=== PATIENT | male | born 1970 | race Caucasian/White ===

== ENCOUNTER 2017-08-31 10:32 | Emergency (ER) | payer MEDICAID, SELFPAY ==
[2017-08-31 10:43] VITALS: BP 105/67; PULSE 86; RESP 20; TEMP 36.6; O2SAT 99; BMI 33.0
--- NOTE | 2017-08-31 10:51 | HMH.EDUTC ---
[facility] [place] Impression: Upper respiratory infection Qualifiers: URI type: unspecified URI Qualified Code(s): J06.9 - Acute upper respiratory infection, unspecified Disposition: Home, Self-Care Condition on Discharge: Good Instructions: Cough, DI for Nasal Congestion, Sore Throat, DI for Fever (Symptom) -- Adult Additional Instructions: * Monitor Temp. Tylenol and/or Ibuprofen as needed. ER if fever is no less than 101 despite alternating Tylenol and Ibuprofen * Encourage fluids, water, Gatorade, powerade, pedialyte if infant/toddler/or child * Warm salt water gargles for throat irritation *Warm fluids *Sore throat lozenges *Sleep elevated *humidifier or vaporizer Lots of rest Increase fluids, water, Gatorade, powerade Follow up IMMEDIATELY for new or worsening of symptoms OR no noticeable improvement over the next 48-72 hours. 911 immediately for any life threatening symptoms such as chest pain or difficulty breathing Prescriptions: Azithromycin [Z-Joni 250mg Tab] 250 mg PO UD DOSE PK #6 tab Dextromethorphan Polistirex [Delsym] 10 ml PO Q12H #200 gene.er.12h Referrals: Cm Chance MD [Primary Care Provider] - Time of Disposition: 11:05 Medical Decision Making - Medical Records Medical records reviewed: Yes: I reviewed the patient's medical records. Vital Signs: 08/31/17 10:43 Temperature 97.9 F Temperature Source Temporal Artery Scan Pulse Rate [Left Brachial] 86 Respiratory Rate 20 Blood Pressure [Left Arm] 105/67 Blood Pressure Mean [Left Arm] 79 Blood Pressure Source [Left Arm] Automatic Cuff Blood Pressure Position [Left Arm] Sitting 02 Sat by Pulse Oximetry 99 Oxygen Delivery Method Room Air - Tristen Inquiry Pt receiving controlled substance: No Tristen was queried for this patient: No - Reevaluation(s) Time: 11:04 (Patient educated that steroid injection may cause blood sugar to be higher for the next couple of days then it should come back down patient verbalized understanding and advised that he has taken it before) [facility] [place] - General Stated complaint: hot and cold, weak headache Mode of Arrival: Ambulatory Source of Information: Patient Limitations: No Limitations Description of Symptoms (Recalled from Triage Doc. by RN): C/O BODYACHES, CHILLS, FEVER, CONGESTION HEENT Symptoms (Recalled from RN notes): Yes (CONGESTION) Resp Symptoms (Recalled from RN notes): Yes (CONGESTION) Skin Symptoms (Recalled from RN notes): No MS Symptoms (Recalled from RN notes): Yes (BODYACHES) Functional Status (Recalled from RN notes): N/A - History of Present Illness Provider Complaint: Patient state that he thinks he has the flu State that he is having body aches, chills, fever cough and sinus pain and pressure State that it has continued to get worse as the days went on State that he knew flu was going around so wanted to come in and get checked - Related Data Home Medications Medication Instructions Recorded Confirmed Gabapentin [Gabapentin 800mg Tab] 800 mg PO DAILY 08/31/17 08/31/17 Levothyroxine Sodium 100 mg PO DAILY 08/31/17 08/31/17 [Levothyroxine 100mcg (0.1MG) Tab] Lisinopril [Lisinopril 10mg Tab] 10 mg PO DAILY 08/31/17 08/31/17 Lovastatin 10 mg PO DAILY 08/31/17 08/31/17 Previous Rx's Medication Instructions Recorded Azithromycin [Z-Join 250mg Tab] 250 mg PO UD DOSE PK #6 tab 08/31/17 Dextromethorphan Polistirex 10 ml PO Q12H #200 gene.er.12h 08/31/17 [Delsym] Allergies Allergy/AdvReac Type Severity Reaction Status Date / Time codeine [CODEINE] Allergy Unknown NA-NAUSEA Verified 08/31/17 10:48 - Worker's Comp Is this a Worker's Comp case?: No H History I have reviewed the patient's past medical history: Yes Medical History: Reports:: Diabetes Mellitus Type 1 Denies:: Cancer, Diabetes Mellitus Type 2, MRSA Amputation: No Fractures: No - *Social History Smoking Status: Current every day smoker Alcohol Intake: never - Psychiatric Hi
--- NOTE | 2017-08-31 10:54 | ED_ITS ---
[facility] [place] Impression: Upper respiratory infection Qualifiers: URI type: unspecified URI Qualified Code(s): J06.9 - Acute upper respiratory infection, unspecified Disposition: Home, Self-Care Condition on Discharge: Good Instructions: Cough, DI for Nasal Congestion, Sore Throat, DI for Fever ( Symptom) -- Adult Additional Instructions: * Monitor Temp. Tylenol and/or Ibuprofen as needed. ER if fever is no less than 101 despite alternating Tylenol and Ibuprofen * Encourage fluids, water, Gatorade, powerade, pedialyte if infant/toddler/or child * Warm salt water gargles for throat irritation *Warm fluids *Sore throat lozenges *Sleep elevated *humidifier or vaporizer Lots of rest Increase fluids, water, Gatorade, powerade Follow up IMMEDIATELY for new or worsening of symptoms OR no noticeable improvement over the next 48-72 hours. 911 immediately for any life threatening symptoms such as chest pain or difficulty breathing Prescriptions: Azithromycin [Z-Joni 250mg Tab] 250 mg PO UD DOSE PK #6 tab Dextromethorphan Polistirex [Delsym] 10 ml PO Q12H #200 gene.er.12h Referrals: Cm Chance MD [Primary Care Provider] - Time of Disposition: 11:05 Medical Decision Making - Medical Records Medical records reviewed: Yes: I reviewed the patient's medical records. Vital Signs: 08/31/17 10:43 Temperature 97.9 F Temperature Source Temporal Artery Scan Pulse Rate [Left Brachial] 86 Respiratory Rate 20 Blood Pressure [Left Arm] 105/67 Blood Pressure Mean [Left Arm] 79 Blood Pressure Source [Left Arm] Automatic Cuff Blood Pressure Position [Left Arm] Sitting 02 Sat by Pulse Oximetry 99 Oxygen Delivery Method Room Air - Tristen Inquiry Pt receiving controlled substance: No Tristen was queried for this patient: No - Reevaluation(s) Time: 11:04 (Patient educated that steroid injection may cause blood sugar to be higher for the next couple of days then it should come back down patient verbalized understanding and advised that he has taken it before) [facility] [place] - General Stated complaint: hot and cold, weak headache Mode of Arrival: Ambulatory Source of Information: Patient Limitations: No Limitations Description of Symptoms (Recalled from Triage Doc. by RN): C/O BODYACHES, CHILLS , FEVER, CONGESTION HEENT Symptoms (Recalled from RN notes): Yes (CONGESTION) Resp Symptoms (Recalled from RN notes): Yes (CONGESTION) Skin Symptoms (Recalled from RN notes): No MS Symptoms (Recalled from RN notes): Yes (BODYACHES) Functional Status (Recalled from RN notes): N/A - History of Present Illness Provider Complaint: Patient state that he thinks he has the flu State that he is having body aches, chills, fever cough and sinus pain and pressure State that it has continued to get worse as the days went on State that he knew flu was going around so wanted to come in and get checked - Related Data Home Medications Medication Instructions Recorded Confirmed Gabapentin [Gabapentin 800mg Tab] 800 mg PO DAILY 08/31/17 08/31/17 Levothyroxine Sodium 100 mg PO DAILY 08/31/17 08/31/17 [Levothyroxine 100mcg (0.1MG) Tab] Lisinopril [Lisinopril 10mg Tab] 10 mg PO DAILY 08/31/17 08/31/17 Lovastatin 10 mg PO DAILY 08/31/17 08/31/17 Previous Rx's Medication Instructions Recorded Azithromycin [Z-Joni 250mg Tab] 250 mg PO UD DOSE PK #6 tab 08/31/17 Dextromethorphan
[2017-08-31 11:28] LABS: UTC Influenza A Antigen Negative (Negative); UTC Influenza B Antigen Negative (Negative)
[2017-08-31 11:31] VITALS: BP 105/67; PULSE 86; RESP 20; TEMP 36.6; O2SAT 99
== END 2017-08-31 11:35 | disposition home or self-care (01) ==
PROVIDERS: Emergency Provider Nurse Practitioner; Family Provider Emergency Medicine; PCP Emergency Medicine
DX: J06.9 Acute upper respiratory infection, unspecified (principal); Z88.6 Allergy status to analgesic agent; I10 Essential (primary) hypertension; E10.9 Type 1 diabetes mellitus without complications; Z79.84 Long term (current) use of oral hypoglycemic drugs
CPT/HCPCS: 87804; 96372; 99202; 99282

== ENCOUNTER → 2017-09-06 11:01 | Outpatient (CLI) | payer MEDICAID, SELFPAY ==
--- NOTE | 2017-09-06 11:12 | XR_ITS ---
XR shoulder RT min 2V Ordering Physician: Cm Chance MD Patient Age: 47 years: Male HISTORY: ITS.REASON: RT SHOULDER PAINright shoulder pain. HISTORY of rotator cuff tear surgery on left. Same symptoms now on right. TECHNIQUE: 3 views right shoulder COMPARISON :July 11, 2016 FINDINGS No fracture nor dislocation.. Right glenohumeral joint well-maintained. Shallow but adequate glenoid. Humeral head and neck intact. AC joint intact. Perhaps slightly modest subacromial space but unimpressive on plain film. If pain persist follow-up requires MR. The apex right lung and upper right ribs unremarkable. IMPRESSION: Right shoulder intact. No significant change since 2016
== END ==
PROVIDERS: PCP Emergency Medicine; Visit Provider Emergency Medicine
DX: M25.511 Pain in right shoulder (principal)
CPT/HCPCS: 73030

== ENCOUNTER → 2017-10-04 13:47 | Outpatient (CLI) | payer MEDICAID, SELFPAY ==
[2017-10-04 17:38] LABS: Alanine Aminotransferase 102 U/L (12-78); Albumin Level 3.9 gm/dL (3.4-5.0); Albumin/Globulin Ratio 1.1 (1.1-1.8); Alkaline Phosphatase 112 U/L (46-116); Anion Gap 11.3 mEq/L (5-15); Bilirubin,Total 0.4 mg/dL (0.2-1.0); Blood Urea Nitrogen 10 mg/dL (7-18); Carbon Dioxide 29 mmol/L (21.0-32.0); Chloride 98 mmol/L (98-107); Creatinine,Serum 0.74 mg/dL (0.70-1.30); Estimated Glomerular Filt Rate 113 ml/min (>60); GFR (African American) 137 ML/MIN (>60); Globulin 3.7 gm/dl (1.3-3.2); Glucose 323 mg/dL (74-106); Sodium 133 mmol/L (136-145); Total Protein,Serum 7.6 gm/dL (6.4-8.2)
[2017-10-04 17:39] LABS: Potassium 5.3 mmoL/L (3.5-5.1)
[2017-10-04 17:40] LABS: Aspartate Amino Transferase 57 U/L (15-37)
== END ==
PROVIDERS: PCP Emergency Medicine; Visit Provider Nurse Practitioner Family
DX: E11.9 Type 2 diabetes mellitus without complications (principal)
CPT/HCPCS: 36415; 80053; 83036

== ENCOUNTER → 2017-10-05 14:16 | Outpatient (CLI) | payer MEDICAID, SELFPAY ==
--- NOTE | 2017-10-05 14:17 | MR_ITS ---
MR shoulder RT wo con HISTORY: Right shoulder pain with limited range of motion ORDERING PHYSICIAN: Phillip Maldonado MD PATIENT AGE: 47 years COMPARISON: Radiograph of 09/06/2017 TECHNIQUE: Standard multiplanar multiecho sequences are performed without contrast. FINDINGS: There are hypertrophic changes of the acromioclavicular joint with mild subacromial stenosis. There is increased T2 signal at the AC joint. There is thickening of the supraspinatus tendon with increased T2 signal consistent with tendinopathy/tendinosis. A supraspinatus tendon tear is not apparent however. There is focal increased T2 signal involving the distal aspect of the infraspinatus tendon at its insertion on the greater tuberosity consistent with a full-thickness tear. However, the tendon is not retracted. The subscapularis and teres minor tendons are intact. No evidence of labral tear. There is some increased T2 signal in the humeral head with of cortical cystic change. No significant effusion. IMPRESSION: 1. Full-thickness tear of the distal aspect of the infraspinatus tendon without tendon retraction 2. Tendinopathy/tendinosis of the supraspinatus tendon. 3. 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
== END ==
PROVIDERS: Family Provider Emergency Medicine; PCP Emergency Medicine; Visit Provider Orthopaedic Surgery
DX: M75.41 Impingement syndrome of right shoulder (principal)
CPT/HCPCS: 73221

== ENCOUNTER 2017-10-26 15:29 | Emergency (ER) | payer MEDICAID, SELFPAY ==
[2017-10-26 15:52] VITALS: BP 115/77; PULSE 76; RESP 20; TEMP 36.6; O2SAT 97; BMI 34.4
[2017-10-26 16:10] VITALS: BP 115/77; PULSE 76; RESP 20; TEMP 36.6; O2SAT 97
--- NOTE | 2017-10-26 16:16 | HMH.EDUTC ---
[facility] – [place] Clinical Impression: Allergic rhinitis Qualifiers: Allergic rhinitis trigger: other Allergic rhinitis seasonality: unspecified seasonality Qualified Code(s): J30.89 - Other allergic rhinitis Disposition: Home, Self-Care Condition on Discharge: Good Instructions: DI for Allergic Rhinitis Additional Instructions: * No sign of bacterial infection. Sounds like allergies. * Nasal Saline helps to remove nasal drainage and helps with nasal congestion. Hard to eat, drink, sleep with nasal congestion so important to keep nose cleaned out * Monitor Temp. Fever is NOT expected and could be the sign of a secondary infection so be sure to follow up if this develops. * Lots of fluids, always. Preferably water. Avoid soda/tea/caffeine * warm salt water gargles, warm fluids, sore throat lozenges all help with drainage related sore throat * sleep elevated to help with drainage * humidifier/vaporizer and/or hot steamy showers * Start Claritin 10mg daily and flonase 2 sprays each nostril daily. Can take several days before you notice improvement. Wait one week and if symptoms controlled, back down to 1 spray flonase each nostril and the claritin. If symptoms return, go back to 2 sprays but if symptoms remain controlled, give it a week and try stopping flonase. If symptoms return, start back at 1 spray each nostril with claritin but if symptoms remain controlled, continue just claritin. Wait another week and if still controlled, try stopping claritin. If symptoms return, restart claritin but if remain controlled, no medication. Prescriptions: Fluticasone Propionate [Flonase 50mcg nasal spray 16gm] 2 spr NS DAILY #1 bottle Loratadine [Claritin 10mg Tablet] 10 mg PO DAILY #30 tab Referrals: Cm Chance MD [Primary Care Provider] - (For new, worsening or persisting symptoms) Time of Disposition: 16:25 Medical Decision Making - Tristen Inquiry Pt receiving controlled substance: No Vital Signs: 10/26/17 15:52 10/26/17 16:10 Temperature 97.9 F 97.9 F Temperature Source Temporal Artery Scan Pulse Rate 76 Pulse Rate [Brachial] 76 Respiratory Rate 20 20 Blood Pressure 115/77 Blood Pressure [Right Arm] 115/77 Blood Pressure Mean [Right Arm] 89 Blood Pressure Position Sitting Blood Pressure Position [Right Arm] Sitting 02 Sat by Pulse Oximetry 97 Oxygen Delivery Method Room Air Room Air [facility] [place] HPI - General Stated complaint: sinus,sanon Time Seen by Provider: 10/26/17 15:50 Mode of Arrival: Ambulatory Source of Information: Patient Limitations: No Limitations Description of Symptoms (Recalled from Triage Doc. by RN): SEVERE SINUS PRESSURE AND NASAL DRIP HEENT Symptoms (Recalled from RN notes): Yes Resp Symptoms (Recalled from RN notes): Yes Skin Symptoms (Recalled from RN notes): No MS Symptoms (Recalled from RN notes): No Functional Status (Recalled from RN notes): NA - History of Present Illness Provider Complaint: c/o clear rhinorrhea that alternates with nasal congestion that intermittently causes sinus headaches. Ongoing x months. Improves with unknown treatment options at PCP and walk in clinics. Pt thinking maybe steroids, decongestants, antibiotics but then always returns. No fever. Denies allergies and takes nothing ongoing for symptoms. - Related Data Home Medications Medication Instructions Recorded Confirmed Levothyroxine Sodium 100 mg PO DAILY 08/31/17 08/31/17 [Levothyroxine 100mcg (0.1MG) Tab] Lisinopril [Lisinopril 10mg Tab] 10 mg PO DAILY 08/31/17 08/31/17 Lovastatin 10 mg PO DAILY 08/31/17 08/31/17 buprenorphine 8 mg-naloxone 2 mg 1 tab SUBLINGUAL BID tab 09/02/17 sublingual tablet fluticasone 50 mcg/actuation nasal 50 mcg INTRANASAL QDAY PRN 09/02/17 spray,suspension hydroxyzine pamoate 25 mg capsule 25 mg PO QHS PRN cap 09/02/17 insulin NPH isophane U-100 human 40 unit SUB-Q BID ml 09/02/17 100 unit/mL subcutaneous suspension trazodone 50 mg tablet 50 mg PO QHS PRN
--- NOTE | 2017-10-26 16:19 | ED_ITS ---
[facility] – [place] Disposition Clinical Impression: Allergic rhinitis Qualifiers: Allergic rhinitis trigger: other Allergic rhinitis seasonality: unspecified seasonality Qualified Code(s): J30.89 - Other allergic rhinitis Disposition: Home, Self-Care Condition on Discharge: Good Instructions: DI for Allergic Rhinitis Additional Instructions: * No sign of bacterial infection. Sounds like allergies. * Nasal Saline helps to remove nasal drainage and helps with nasal congestion. Hard to eat, drink, sleep with nasal congestion so important to keep nose cleaned out * Monitor Temp. Fever is NOT expected and could be the sign of a secondary infection so be sure to follow up if this develops. * Lots of fluids, always. Preferably water. Avoid soda/tea/caffeine * warm salt water gargles, warm fluids, sore throat lozenges all help with drainage related sore throat * sleep elevated to help with drainage * humidifier/vaporizer and/or hot steamy showers * Start Claritin 10mg daily and flonase 2 sprays each nostril daily. Can take several days before you notice improvement. Wait one week and if symptoms controlled, back down to 1 spray flonase each nostril and the claritin. If symptoms return, go back to 2 sprays but if symptoms remain controlled, give it a week and try stopping flonase. If symptoms return, start back at 1 spray each nostril with claritin but if symptoms remain controlled, continue just claritin. Wait another week and if still controlled, try stopping claritin. If symptoms return, restart claritin but if remain controlled, no medication. Prescriptions: Fluticasone Propionate [Flonase 50mcg nasal spray 16gm] 2 spr NS DAILY #1 bottle Loratadine [Claritin 10mg Tablet] 10 mg PO DAILY #30 tab Referrals: Cm Chance MD [Primary Care Provider] - (For new, worsening or persisting symptoms) Time of Disposition: 16:25 Medical Decision Making - Tristen Inquiry Pt receiving controlled substance: No Vital Signs: 10/26/17 15:52 10/26/17 16:10 Temperature 97.9 F 97.9 F Temperature Source Temporal Artery Scan Pulse Rate 76 Pulse Rate [Brachial] 76 Respiratory Rate 20 20 Blood Pressure 115/77 Blood Pressure [Right Arm] 115/77 Blood Pressure Mean [Right Arm] 89 Blood Pressure Position Sitting Blood Pressure Position [Right Arm] Sitting 02 Sat by Pulse Oximetry 97 Oxygen Delivery Method Room Air Room Air [facility] – [place] HPI - General Stated complaint: sinus,sanon Time Seen by Provider: 10/26/17 15:50 Mode of Arrival: Ambulatory Source of Information: Patient Limitations: No Limitations Description of Symptoms (Recalled from Triage Doc. by RN): SEVERE SINUS PRESSURE AND NASAL DRIP HEENT Symptoms (Recalled from RN notes): Yes Resp Symptoms (Recalled from RN notes): Yes Skin Symptoms (Recalled from RN notes): No MS Symptoms (Recalled from RN notes): No Functional Status (Recalled from RN notes): NA - History of Present Illness Provider Complaint: c/o clear rhinorrhea that alternates with nasal congestion that intermittently causes sinus headaches. Ongoing x months. Improves with unknown treatment options at PCP and walk in clinics. Pt thinking maybe steroids , decongestants, antibiotics but then always returns. No fever. Denies allergies and takes nothing ongoing for symptoms. - Related Data Home Medications Medication Instructions Recorded Confirmed Levothyroxine Sodium 100 mg PO DAILY 08/31/17 08/31/17 [Levothyroxine 100mcg (0.1MG) Tab]
== END 2017-10-26 16:26 | disposition home or self-care (01) ==
PROVIDERS: Emergency Provider Nurse Practitioner Family; Family Provider Emergency Medicine; PCP Emergency Medicine
DX: J30.89 Other allergic rhinitis (principal); E10.9 Type 1 diabetes mellitus without complications; I10 Essential (primary) hypertension; E78.5 Hyperlipidemia, unspecified; F17.210 Nicotine dependence, cigarettes, uncomplicated; Z88.6 Allergy status to analgesic agent
CPT/HCPCS: 99202

== ENCOUNTER → 2017-11-30 08:50 | Outpatient (CLI) | payer MEDICAID, SELFPAY ==
[2017-11-30 09:46] LABS: Basophils # 0.1 K/mm3 (0-0.2); Eosinophils # 0.3 K/mm3 (0.0-0.4); Hematocrit 53.3 % (42.0-52.0); Hemoglobin 17.9 g/dL (14.1-18.0); Lymphocytes % 32.1 K/mm3 (10-50); Mean Corpuscular HGB Conc 33.6 g/dL (31.8-35.4); Mean Corpuscular Hemoglobin 32.7 pg (27.0-31.2); Mean Corpuscular Volume 97.4 fl (80-94); Mean Platelet Volume 7.5 fl (7.4-10.4); Monocytes # 0.6 K/mm3 (0.1-1.0); Neutrophils # 5.5 K/mm3 (1.8-7.8); Neutrophils % 57.9 % (37.0-80.0); Platelet Count 228 K/mm3 (142-424); Red Blood Count 5.47 M/mm3 (4.60-6.20); Red Cell Distribution Width 13.1 % (11.5-17.5); White Blood Count 9.4 K/mm3 (4.8-10.8)
[2017-11-30 10:59] LABS: Alanine Aminotransferase 32 U/L (12-78); Albumin Level 3.6 gm/dL (3.4-5.0); Alkaline Phosphatase 108 U/L (46-116); Anion Gap 12.5 mEq/L (5-15); Bilirubin,Total 0.4 mg/dL (0.2-1.0); Blood Urea Nitrogen 13 mg/dL (7-18); Carbon Dioxide 29 mmol/L (21.0-32.0); Chloride 98 mmol/L (98-107); Chol/HDL Ratio 5.9 (1-3.5); Cholesterol 154 mg/dL (140-200); Creatinine,Serum 0.85 mg/dL (0.70-1.30); Estimated Glomerular Filt Rate 97 ml/min (>60); GFR (African American) 117 ML/MIN (>60); Globulin 3.7 gm/dl (1.3-3.2); HDL Cholesterol 26 mg/dL (27-67); LDL Cholesterol 50 mg/dL (0-130); Potassium 5.5 mmoL/L (3.5-5.1); Sodium 134 mmol/L (136-145); T4 (Thyroxine) 10.4 ug/dl (4.7-13.3); Thyroid Stimulating Hormone 0.01 uIU/ml (0.358-3.740); Total Protein,Serum 7.3 gm/dL (6.4-8.2); Triglycerides 392 mg/dL (30-200); VLDL Cholesterol 78 mg/dL (0-40)
[2017-11-30 11:58] LABS: Aspartate Amino Transferase 24 U/L (15-37)
[2017-11-30 12:30] LABS: Glucose 295 mg/dL (74-106)
[2017-11-30 13:31] LABS: Hemoglobin A1C 8.9 % (0.0-7.0)
[2017-12-01 16:18] LABS: Microalbumin, Urine 5.3 ug/mL (Not Estab.); Vitamin D 25 Hydroxy 13.5 ng/mL (30.0-100.0)
== END ==
PROVIDERS: PCP Emergency Medicine; Visit Provider Emergency Medicine
DX: E11.9 Type 2 diabetes mellitus without complications (principal)
CPT/HCPCS: 36415; 80053; 80061; 82043; 82652; 83036; 84436; 84443; 85025

== ENCOUNTER → 2018-01-03 15:39 | Outpatient (REF) | payer MEDICAID, SELFPAY ==
[2018-01-03 19:45] LABS: Anion Gap 12.9 mEq/L (5-15); Blood Urea Nitrogen 14 mg/dL (7-18); Carbon Dioxide 29 mmol/L (21.0-32.0); Chloride 99 mmol/L (98-107); Creatinine,Serum 0.89 mg/dL (0.70-1.30); Estimated Glomerular Filt Rate 92 ml/min (>60); GFR (African American) 111 ML/MIN (>60); Glucose 73 mg/dL (74-106); Potassium 4.9 mmoL/L (3.5-5.1); Sodium 136 mmol/L (136-145)
== END ==
LOC: LAB 15:39
PROVIDERS: Visit Provider Emergency Medicine
DX: E11.9 Type 2 diabetes mellitus without complications (principal)
CPT/HCPCS: 80048

== ENCOUNTER → 2018-02-23 12:30 | Outpatient (CLI) | payer MEDICAID, SELFPAY ==
[2018-02-23 13:29] LABS: Alanine Aminotransferase 36 U/L (12-78); Albumin Level 3.9 gm/dL (3.4-5.0); Albumin/Globulin Ratio 1.1 (1.1-1.8); Alkaline Phosphatase 74 U/L (46-116); Anion Gap 11.3 mEq/L (5-15); Aspartate Amino Transferase 30 U/L (15-37); Bilirubin,Total 0.3 mg/dL (0.2-1.0); Blood Urea Nitrogen 9 mg/dL (7-18); Calcium 9.2 mg/dL (8.5-10.1); Carbon Dioxide 31 mmol/L (21.0-32.0); Chloride 100 mmol/L (98-107); Creatinine,Serum 0.95 mg/dL (0.70-1.30); Estimated Glomerular Filt Rate 85 ml/min (>60); GFR (African American) 103 ML/MIN (>60); Globulin 3.6 gm/dl (1.3-3.2); Glucose 162 mg/dL (74-106); Potassium 5.3 mmoL/L (3.5-5.1); Sodium 137 mmol/L (136-145); Total Protein,Serum 7.5 gm/dL (6.4-8.2)
[2018-02-24 08:42] LABS: Hepatitis B Surface Antigen Negative (Negative)
[2018-02-25 17:58] LABS: Hepatitis B Core Antibody IgM Positive (Negative); Hepatitis B Surf Ab Quant <3.1 mIU/mL (Immunity>9.9)
[2018-02-25 22:09] LABS: HBV IU/mL 50 IU/mL (.)
[2018-02-27 01:08] LABS: log10 HBV as IU/mL 1.699 (.)
[2018-03-03 09:08] LABS: Hepatitis C Genotype 3 (.)
== END ==
PROVIDERS: Visit Provider Internal Medicine
DX: B19.10 Unspecified viral hepatitis B without hepatic coma (principal)
CPT/HCPCS: 36415; 80053; 86704; 86706; 87340; 87517; 87522

== ENCOUNTER → 2018-04-20 09:24 | Outpatient (CLI) | payer MEDICAID, SELFPAY | PROVIDERS: Family Provider Emergency Medicine; PCP Emergency Medicine; Visit Provider Internal Medicine | DX: B19.10 Unspecified viral hepatitis B without hepatic coma (principal) ==

== ENCOUNTER → 2018-04-21 08:57 | Outpatient (CLI) | payer MEDICAID, SELFPAY ==
--- NOTE | 2018-04-21 09:08 | US_ITS ---
US abdomen limited HISTORY:HISTORY of hepatitis C. Abdominal pain. Nausea ORDERING PHYSICIAN: Martha Best PATIENT AGE: 48 years Comparison: None relevant TECHNIQUE Sagittal, transverse and decubitus imaging of the gallbladder was performed. FINDINGS: GALLBLADDER - No stones are. Septated gallbladder. Upper normal gallbladder wall thickness at in some areas. Generally 3.2 mm.. Common duct is normal in diameter. Liver: Slight increased echogenicity about liver suggesting diffuse fatty change. . Portal vein images normal caliber with normal direction flow. Common duct normal caliber less than 3 mm at hilum of liver. Pancreas: . Poorly seen but region of pancreas grossly unremarkable Right kidney: Appears normal. Cortex well-maintained with no hydronephrosis nor mass. 13.2 cm length IMPRESSION: Gallbladder. No gallstones evident. Thick sludge. Septated gallbladder with borderline gallbladder wall thickening in some areas Liver. Diffuse increased echogenicity likely reflecting mild fatty change. No focal lesions. No biliary ductal dilatation Pancreas poorly seen
== END ==
PROVIDERS: Family Provider Emergency Medicine; PCP Emergency Medicine; Visit Provider Nurse Practitioner
DX: B19.10 Unspecified viral hepatitis B without hepatic coma (principal)
CPT/HCPCS: 76705

== ENCOUNTER → 2018-05-09 10:38 | Outpatient (CLI) | payer MEDICAID, SELFPAY ==
[2018-05-09 13:24] LABS: Chol/HDL Ratio 5.6 (1-3.5); Cholesterol 158 mg/dL (140-200); HDL Cholesterol 28 mg/dL (27-67); LDL Cholesterol 84 mg/dL (0-130); Thyroid Stimulating Hormone 0.01 uIU/ml (0.358-3.740); Triglycerides 230 mg/dL (30-200); VLDL Cholesterol 46 mg/dL (0-40)
[2018-05-11 16:50] LABS: Microalbumin, Urine 5.9 ug/mL (Not Estab.)
== END ==
PROVIDERS: PCP Emergency Medicine; Visit Provider Nurse Practitioner Family
DX: E11.65 Type 2 diabetes mellitus with hyperglycemia (principal)
CPT/HCPCS: 36415; 80061; 82043; 84443

== ENCOUNTER → 2018-05-26 12:39 | Outpatient (CLI) | payer MEDICAID, SELFPAY ==
[2018-05-26 14:22] LABS: Alanine Aminotransferase 20 U/L (12-78); Albumin Level 3.9 gm/dL (3.4-5.0); Albumin/Globulin Ratio 1.2 (1.1-1.8); Alkaline Phosphatase 69 U/L (46-116); Anion Gap 13.7 mEq/L (5-15); Bilirubin,Total 0.4 mg/dL (0.2-1.0); Blood Urea Nitrogen 13 mg/dL (7-18); Carbon Dioxide 27 mmol/L (21.0-32.0); Chloride 99 mmol/L (98-107); Creatinine,Serum 0.81 mg/dL (0.70-1.30); Estimated Glomerular Filt Rate 102 ml/min (>60); GFR (African American) 123 ML/MIN (>60); Globulin 3.3 gm/dl (1.3-3.2); Glucose 134 mg/dL (74-106); Sodium 135 mmol/L (136-145); Total Protein,Serum 7.2 gm/dL (6.4-8.2)
[2018-05-26 14:30] LABS: Aspartate Amino Transferase 23 U/L (15-37); Potassium 4.7 mmoL/L (3.5-5.1)
[2018-05-26 15:12] LABS: Hematocrit 50.6 % (42.0-52.0); Hemoglobin 16.4 g/dL (14.1-18.0); Mean Corpuscular HGB Conc 32.4 g/dL (31.8-35.4); Mean Corpuscular Hemoglobin 30.8 pg (27.0-31.2); Mean Corpuscular Volume 94.9 fl (80-94); Platelet Count 274 K/mm3 (142-424); Red Blood Count 5.34 M/mm3 (4.60-6.20); Red Cell Distribution Width 13.6 % (11.5-17.5); White Blood Count 7.9 K/mm3 (4.8-10.8)
== END ==
PROVIDERS: PCP Emergency Medicine; Visit Provider Nurse Practitioner
DX: B19.10 Unspecified viral hepatitis B without hepatic coma (principal)
CPT/HCPCS: 36415; 80053; 85014; 85018; 85048; 85049; 87522

== ENCOUNTER → 2018-10-11 10:00 | Outpatient (CLI) | payer MEDICAID, SELFPAY | PROVIDERS: PCP Emergency Medicine; Visit Provider Emergency Medicine | DX: Z71.3 Dietary counseling and surveillance (principal); E11.9 Type 2 diabetes mellitus without complications | CPT/HCPCS: 97802 ==

== ENCOUNTER → 2018-11-17 13:48 | Outpatient (CLI) | payer MEDICAID, SELFPAY ==
[2018-11-17 14:03] LABS: Basophils # 0.1 K/mm3 (0-0.2); Basophils % 1.3 % (0.1-2.0); Eosinophils # 0.2 K/mm3 (0.0-0.4); Eosinophils % 2.3 % (0.1-12.0); Lymphocytes # 3.4 K/mm3 (0.7-4.5); Lymphocytes % 42.1 % (10-50); Mean Corpuscular HGB Conc 33.4 g/dL (31.8-35.4); Mean Corpuscular Hemoglobin 31.4 pg (27.0-31.2); Mean Corpuscular Volume 94.1 fl (80-94); Mean Platelet Volume 7.2 fl (7.4-10.4); Monocytes # 0.5 K/mm3 (0.1-1.0); Monocytes % 6.3 % (1.7-9.3); Neutrophils # 3.9 K/mm3 (1.8-7.8); Platelet Count 295 K/mm3 (142-424); Red Cell Distribution Width 14.5 % (11.5-17.5); White Blood Count 8.1 K/mm3 (4.8-10.8)
[2018-11-17 15:01] LABS: Alanine Aminotransferase 23 U/L (12-78); Albumin/Globulin Ratio 1.1 (1.1-1.8); Alkaline Phosphatase 60 U/L (46-116); Anion Gap 16.8 mEq/L (5-15); Bilirubin,Total 0.3 mg/dL (0.2-1.0); Blood Urea Nitrogen 10 mg/dL (7-18); Carbon Dioxide 27 mmol/L (21.0-32.0); Chloride 100 mmol/L (98-107); Chol/HDL Ratio 6.6 (1-3.5); Cholesterol 178 mg/dL (140-200); Creatinine,Serum 1.16 mg/dL (0.70-1.30); Estimated Glomerular Filt Rate 67 ml/min (>60); GFR (African American) 81 ML/MIN (>60); Globulin 3.6 gm/dl (1.3-3.2); Glucose 186 mg/dL (74-106); HDL Cholesterol 27 mg/dL (27-67); LDL Cholesterol 72 mg/dL (0-130); Sodium 139 mmol/L (136-145); T4 (Thyroxine) 5.5 ug/dl (4.7-13.3); Thyroid Stimulating Hormone 0.01 uIU/ml (0.358-3.740); Total Protein,Serum 7.6 gm/dL (6.4-8.2); Triglycerides 394 mg/dL (30-200); VLDL Cholesterol 79 mg/dL (0-40)
[2018-11-17 15:07] LABS: Aspartate Amino Transferase 20 U/L (15-37); Potassium 4.8 mmoL/L (3.5-5.1)
[2018-11-17 16:39] LABS: Hemoglobin A1C 6.1 % (0.0-7.0)
[2018-11-18 09:06] LABS: Vitamin D 25 Hydroxy 41.2 ng/mL (30.0-100.0)
[2018-11-19 08:26] LABS: Creatinine, Urine 97.2 mg/dL (Not Estab.); Microalbumin, Urine 11.7 ug/mL (Not Estab.)
== END ==
PROVIDERS: Visit Provider Nurse Practitioner Family
DX: E11.9 Type 2 diabetes mellitus without complications (principal); Z79.4 Long term (current) use of insulin
CPT/HCPCS: 80053; 80061; 82043; 82570; 82652; 83036; 84436; 84443; 85025

== ENCOUNTER → 2018-12-05 20:03 | Outpatient (CLI) | payer MEDICAID, SELFPAY | PROVIDERS: PCP Emergency Medicine; Visit Provider Nurse Practitioner Family | DX: G47.33 Obstructive sleep apnea (adult) (pediatric) (principal); G47.30 Sleep apnea, unspecified; G47.10 Hypersomnia, unspecified; R06.83 Snoring; I10 Essential (primary) hypertension | CPT/HCPCS: 95810 ==

== ENCOUNTER 2019-01-12 14:46 | Emergency (ER) | payer MEDICAID, SELFPAY ==
[2019-01-12 14:53] VITALS: BP 136/84; PULSE 80; RESP 18; TEMP 37.2; O2SAT 95; BMI 36.0
--- NOTE | 2019-01-12 15:04 | HMH.EDUTC ---
[facility] [place]ression: Acute bronchitis Qualifiers: Bronchitis organism: unspecified organism Qualified Code(s): J20.9 - Acute bronchitis, unspecified Sinusitis Qualifiers: Sinusitis location: unspecified location Chronicity: acute Recurrence: non-recurrent Qualified Code(s): J01.90 - Acute sinusitis, unspecified Disposition: Home, Self-Care Condition on Discharge: Good Instructions: Sinusitis, Acute Bronchitis, DI for Sinusitis, DI for Acute Bronchitis Additional Instructions: Drink plenty of fluids. Take tylenol or ibuprofen for pain or fever Take all the antibiotics as prescribed. Follow up with your regular doctor. GO TO THE ER FOR ANY WORSENING OR LIFE THREATENING SYMPTOMS Prescriptions: Ibuprofen [Ibuprofen 600mg Tablet] 600 mg PO Q6HP PRN #30 tab PRN Reason: Mild Pain Promethazine/Dextromethorphan [Promethazine-Dm Syrup] 5 ml PO Q6HP PRN #240 syrup PRN Reason: Cough Albuterol Sulfate [Albuterol HFA Inhaler] 1 - 2 puffs IH Q4-6H PRN #1 inh PRN Reason: Shortness Of Breath Or Wheezing Amoxicillin/Potassium Clav [Augmentin 875-125 Tablet] 1 tab PO Q12H 10 Days #20 tab methylPREDNISolone [Medrol] 4 mg PO DIRECTED 6 Days #21 tab.ds.pk Referrals: Cm Chance MD [Primary Care Provider] - Time of Disposition: 15:14 Medical Decision Making - Medical Records Medical records reviewed: Yes: I reviewed the patient's medical records. - Tristen Inquiry Pt receiving controlled substance: No Tristen was queried for this patient: No Vital Signs: 01/12/19 14:53 01/12/19 15:20 Temperature 98.9 F 98.9 F Temperature Source Oral Pulse Rate 80 Pulse Rate [Left Radial] 80 Respiratory Rate 18 18 Blood Pressure 136/84 Blood Pressure [Left Arm] 136/84 Blood Pressure Mean [Left Arm] 101 Blood Pressure Source [Left Arm] Automatic Cuff Blood Pressure Position [Left Arm] Sitting 02 Sat by Pulse Oximetry 95 Oxygen Delivery Method Room Air [facility] [place] Stated complaint: Coughing up brown stuff Time Seen by Provider: 01/12/19 15:04 Mode of Arrival: Ambulatory Source of Information: Patient Limitations: No Limitations Description of Symptoms (Recalled from Triage Doc. by RN): C/O PERSISTANT COUGH X1 MONTH FOLLOWING AN OUTDOOR WALK WITH HIS BAPTIST IN THE [place]IN HEENT Symptoms (Recalled from RN notes): No Resp Symptoms (Recalled from RN notes): Yes (COUGH) Skin Symptoms (Recalled from RN notes): No MS Symptoms (Recalled from RN notes): No Functional Status (Recalled from RN notes): N/A - Related Data Home Medications Medication Instructions Recorded Confirmed buprenorphine 8 mg-naloxone 2 mg 1 tab SUBLINGUAL BID tab 09/02/17 12/27/18 sublingual tablet cholecalciferol (vitamin D3) 1,000 PO DAILY 30 Days #30 tab 07/01/18 12/27/18 unit tablet metformin 500 mg tablet PO BID 30 Days #120 tab 07/01/18 12/27/18 Previous Rx's Medication Instructions Recorded blood-glucose meter kit See Dose Instructions .ROUTE 10/04/17 .MEDSUPPLY #1 each insulin syringe with safety needle See Dose Instructions .ROUTE 10/04/17 0.5 mL 30 gauge x 12/29 .MEDSUPPLY #100 each quetiapine 25 mg tablet 25 mg PO QHS #30 tab 09/27/18 fluticasone propionate 50 2 spr NS DAILY #1 bottle 10/04/18 mcg/actuation nasal spray,suspension blood sugar diagnostic strips See Dose Instructions .ROUTE 11/17/18 .MEDSUPPLY #100 each insulin human U-100 NPH-regulr See Rx Instructions SUB-Q BID #10 11/17/18 70-30 mix 100 unit/mL subcutaneous ml susp levothyroxine 75 mcg tablet 75 mcg PO DAILY #30 tab 11/18/18 lovastatin 20 mg tablet 20 mg PO QPM #30 tab 11/18/18 cetirizine 10 mg tablet See Rx Instructions .ROUTE 12/14/18 .COMPLEX #30 tablet lisinopril 10 mg tablet See Rx Instructions .ROUTE 12/22/18 .COMPLEX #90 tab gabapentin 800 mg tablet 800 mg PO TID 30 Days #90 tab 12/27/18 Albuterol Sulfate [Albuterol HFA 1 - 2 puffs IH Q4-6H PRN #1 inh 01/12/19 Inhaler] Amoxicill
[2019-01-12 15:20] VITALS: BP 136/84; PULSE 80; RESP 18; TEMP 37.2; O2SAT 95
== END 2019-01-12 15:21 | disposition home or self-care (01) ==
PROVIDERS: Emergency Provider Nurse Practitioner Family; PCP Emergency Medicine
DX: J20.9 Acute bronchitis, unspecified (principal); J01.90 Acute sinusitis, unspecified; E11.9 Type 2 diabetes mellitus without complications; Z79.84 Long term (current) use of oral hypoglycemic drugs; I10 Essential (primary) hypertension; E78.5 Hyperlipidemia, unspecified; E03.9 Hypothyroidism, unspecified; F17.210 Nicotine dependence, cigarettes, uncomplicated
CPT/HCPCS: 99201

== ENCOUNTER → 2019-03-28 17:21 | Outpatient (CLI) | payer MEDICAID, SELFPAY ==
[2019-03-31 18:01] LABS: Testosterone,Total 106 ng/dL (264-916)
== END ==
PROVIDERS: Visit Provider Emergency Medicine
DX: E34.9 Endocrine disorder, unspecified (principal)
CPT/HCPCS: 84403

== ENCOUNTER → 2019-03-29 20:01 | Outpatient (CLI) | payer MEDICAID, SELFPAY | PROVIDERS: PCP Emergency Medicine; Visit Provider Specialist | DX: G47.33 Obstructive sleep apnea (adult) (pediatric) (principal); G47.36 Sleep related hypoventilation in conditions classified elsewhere; I10 Essential (primary) hypertension | CPT/HCPCS: 95811 ==

== ENCOUNTER → 2019-04-12 14:10 | Outpatient (CLI) | payer MEDICAID, SELFPAY ==
[2019-04-14 14:20] LABS: Testosterone,Total 192 ng/dL (264-916)
== END ==
PROVIDERS: Visit Provider Emergency Medicine
DX: E34.9 Endocrine disorder, unspecified (principal)
CPT/HCPCS: 84403

== ENCOUNTER → 2019-09-25 16:45 | Outpatient (CLI) | payer OTHER, SELFPAY ==
[2019-09-25 17:24] LABS: Basophils # 0.1 K/mm3 (0-0.2); Basophils % 1.3 % (0.1-2.0); Eosinophils # 0.3 K/mm3 (0.0-0.4); Eosinophils % 3.7 % (0.1-12.0); Hematocrit 53.8 % (42.0-52.0); Hemoglobin 17.3 g/dL (14.1-18.0); Lymphocytes # 2.6 K/mm3 (0.7-4.5); Mean Corpuscular HGB Conc 32.2 g/dL (31.8-35.4); Mean Corpuscular Hemoglobin 31.3 pg (27.0-31.2); Mean Corpuscular Volume 97.2 fl (80-94); Mean Platelet Volume 8.4 fl (7.4-10.4); Monocytes # 0.5 K/mm3 (0.1-1.0); Monocytes % 6.1 % (1.7-9.3); Neutrophils # 4.4 K/mm3 (1.8-7.8); Platelet Count 280 K/mm3 (142-424); Red Blood Count 5.54 M/mm3 (4.60-6.20); Red Cell Distribution Width 14.2 % (11.5-17.5); White Blood Count 7.9 K/mm3 (4.8-10.8)
[2019-09-25 17:39] LABS: Alanine Aminotransferase 43 U/L (12-78); Albumin Level 3.7 g/dL (3.4-5.0); Albumin/Globulin Ratio 1.1 (1.1-1.8); Alkaline Phosphatase 57 U/L (46-116); Anion Gap 15.3 mEq/L (5-15); Aspartate Amino Transferase 27 U/L (15-37); Bilirubin,Total 0.3 mg/dL (0.2-1.0); Blood Urea Nitrogen 13 mg/dL (7-18); Carbon Dioxide 30 mmol/L (21.0-32.0); Chloride 102 mmol/L (98-107); Chol/HDL Ratio 6.6 (1-3.5); Cholesterol 177 mg/dL (140-200); Creatinine,Serum 1.13 mg/dL (0.70-1.30); Estimated Glomerular Filt Rate 69 ml/min (>60); Free T4 (Free Thyroxine) 0.93 ng/dl (0.76-1.46); GFR (African American) 83 ML/MIN (>60); Globulin 3.4 gm/dl (1.3-3.2); Glucose 258 mg/dL (74-106); HDL Cholesterol 27 mg/dL (27-67); LDL Cholesterol 80 mg/dL (0-130); Potassium 5.3 mmoL/L (3.5-5.1); Sodium 142 mmol/L (137-145); Total Protein,Serum 7.1 g/dL (6.4-8.2); Triglycerides 348 mg/dL (30-200); VLDL Cholesterol 70 mg/dL (0-40)
[2019-09-25 17:43] LABS: Thyroid Stimulating Hormone < 0.01 uIU/ml (0.358-3.740)
[2019-09-25 18:06] LABS: Hemoglobin A1C 7.7 % (0.0-7.0)
[2019-09-27 13:33] LABS: Creatinine, Urine 143.1 mg/dL (Not Estab.); Microalbumin, Urine 20.9 ug/mL (Not Estab.)
[2019-09-27 16:28] LABS: Vitamin D 25 Hydroxy 33.3 ng/mL (30.0-100.0)
== END ==
PROVIDERS: Visit Provider Emergency Medicine
DX: E11.9 Type 2 diabetes mellitus without complications (principal); E03.9 Hypothyroidism, unspecified; Z79.4 Long term (current) use of insulin; Z79.84 Long term (current) use of oral hypoglycemic drugs
CPT/HCPCS: 80053; 80061; 82043; 82570; 82652; 83036; 84439; 84443; 85025

== ENCOUNTER → 2019-11-23 11:42 | Outpatient (CLI) | payer OTHER, SELFPAY ==
[2019-11-25 08:18] LABS: Testosterone, Total, LC/MS 224.4 ng/dL (264.0-916.0)
== END ==
PROVIDERS: Visit Provider Urology
DX: R79.89 Other specified abnormal findings of blood chemistry (principal)
CPT/HCPCS: 36415; 84403

== ENCOUNTER 2019-11-30 12:08 | Emergency (ER) | payer OTHER, SELFPAY ==
[2019-11-30 12:08] VITALS: BP 114/69; PULSE 88; RESP 20; TEMP 36.9; O2SAT 98; BMI 37.7
--- NOTE | 2019-11-30 12:23 | HMH.EDUTC ---
[facility] [place]ression: Maxillary sinusitis, acute Qualifiers: Recurrence: recurrent Qualified Code(s): J01.01 - Acute recurrent maxillary sinusitis Disposition: Home, Self-Care Condition on Discharge: Good Instructions: Sinusitis, DI for Sinusitis Additional Instructions: Drink plenty of fluids. Take tylenol or ibuprofen for pain or fever. Take the medications as directed. Don't start the oral steroids until tomorrow, since you had the shot here today. Follow up with your regular doctor. GO TO THE ER FOR ANY WORSENING SYMPTOMS Prescriptions: Ibuprofen [Ibuprofen 600mg Tablet] 600 mg PO Q6HP PRN #30 tab PRN Reason: Mild Pain Transmission Status: Pending to [facility] Amoxicillin/Potassium Clav [Augmentin 875-125 Tablet] 1 tab PO Q12H 10 Days #20 tab Transmission Status: Received by [facility] Fluticasone Propionate [Flonase 50mcg nasal spray 16gm] 1 spr NS BID 30 Days #1 bottle Transmission Status: Received by [facility] methylPREDNISolone [Medrol] 4 mg PO DIRECTED 6 Days #21 tab.ds.pk Transmission Status: Received by [facility] Referrals: Cm Chance MD [Primary Care Provider] - Time of Disposition: 12:35 Medical Decision Making - Medical Records Medical records reviewed: No: I reviewed the patient's medical records. - Tristen Inquiry Pt receiving controlled substance: No Vital Signs: 11/30/19 12:08 Temperature 98.4 F Temperature Source Oral Pulse Rate [Radial] 88 Respiratory Rate 20 Blood Pressure [Right Arm] 114/69 Blood Pressure Mean [Right Arm] 84 Blood Pressure Source [Right Arm] Automatic Cuff Blood Pressure Position [Right Arm] Sitting 02 Sat by Pulse Oximetry 98 Oxygen Delivery Method Room Air Orders (Tests/Meds): ED MEDICATIONS Discontinued Medications Generic Name Dose Route Start Last Admin Trade Name Freq PRN Reason Stop Dose Admin Ceftriaxone Sodium 1 gm 11/30/19 12:32 11/30/19 12:39 Rocephin 1gm Vial IM 11/30/19 12:33 1 gm ONCE ONE Administration Protocol Lidocaine HCl 0 ml 11/30/19 12:32 11/30/19 12:39 Lidocaine 1% 10ml Mdv IM 11/30/19 12:33 2.1 ml ONCE ONE Administration Methylprednisolone Sodium Succinate 125 mg 11/30/19 12:32 11/30/19 12:40 Solu-Medrol 125mg/2ml Vial IM 11/30/19 12:33 125 mg ONCE ONE [place] [facility] [place] - General Stated complaint: sinus Time Seen by Provider: 11/30/19 12:23 Mode of Arrival: Ambulatory Source of Information: Patient Limitations: No Limitations Description of Symptoms (Recalled from Triage Doc. by RN): sinus infection HEENT Symptoms (Recalled from RN notes): Yes Resp Symptoms (Recalled from RN notes): No Skin Symptoms (Recalled from RN notes): No MS Symptoms (Recalled from RN notes): No Functional Status (Recalled from RN notes): wnl - History of Present Illness Provider Complaint: He c/o continued sinus congestion and sinus pressure. He states that he has a bad sinus infection and nothing has been helping it very well. - Related Data Home Medications Medication Instructions Recorded Confirmed aspirin 81 mg tablet,delayed 81 mg PO DAILY 09/25/19 11/27/19 release pantoprazole 40 mg tablet,delayed 40 mg PO DAILY 09/25/19 11/27/19 release Previous Rx's Medication Instructions Recorded gabapentin 800 mg tablet 800 mg PO TID #90 tab 09/25/19 nicotine 21 mg/24 hr daily 1 patch TRANSDERMA DAILY #28 each 09/25/19 transdermal patch levothyroxine 50 mcg tablet 50 mcg PO DAILY #30 tab 09/29/19 insulin glargine 100 unit/mL (3 10 unit SQ QHS #15 ml 10/03/19 mL) subcutaneous pen Mupirocin [Bactroban 2% Ointment 1 applicatio TP TID 7 Days #1 tube 10/09/19 22gm tube] cephalexin 500 mg capsule 500 mg PO TID 7 Days #21 cap 10/31/19 prednisone 10 mg tablet 10 mg PO BID #10 tab 10/31/19 insulin human U-100 NPH-regulr See Rx Instructions .ROUTE 11/10/19 70
[2019-11-30 12:46] VITALS: BP 114/69; PULSE 88; RESP 20; TEMP 36.9; O2SAT 98
== END 2019-11-30 12:48 | disposition home or self-care (01) ==
PROVIDERS: Emergency Provider Nurse Practitioner Family; PCP Emergency Medicine
DX: J01.01 Acute recurrent maxillary sinusitis (principal); E11.9 Type 2 diabetes mellitus without complications; I10 Essential (primary) hypertension; E78.5 Hyperlipidemia, unspecified; Z88.5 Allergy status to narcotic agent; Z79.899 Other long term (current) drug therapy
CPT/HCPCS: 96372; 99201

== ENCOUNTER → 2020-01-03 13:24 | Outpatient (CLI) | payer OTHER, SELFPAY ==
--- NOTE | 2020-01-03 13:24 | MR_ITS ---
PROCEDURE: MR LUMBAR SPINE WO CON CLINICAL INDICATION: Lumbar Pain Low back pain, bilateral leg and feet burning COMPARISON: [employer]/O MRI-L-SPINE W/O from 07/25/2013 [employer]/O MRI-L-SPINE W/O from 11/15/2013 TECHNIQUE: Standard multiplanar multiecho sequences are performed without contrast. 3-D MIP and myelographic images are also rendered and reviewed FINDINGS: There is normal alignment. The spinal cord ends at the L1 level. T11-T12: Degenerative disc disease with endplate irregularity and mild kyphosis. T12-L1: Degenerative disc disease. There is a small broad-based left paracentral and foraminal disc protrusion with mild left lateral recess and foraminal narrowing. Type 2 endplate changes L1-L2: Mild degenerative disc disease. L2-L3: Unremarkable. L3-L4: Unremarkable. L4-5: Unremarkable. L5-S1: Unremarkable. No extruded herniated disc or canal stenosis. IMPRESSION: Mild multilevel degenerative disc disease as detailed above with small broad-based left paracentral and foraminal disc protrusion at T12-L1 with mild left lateral recess narrowing. No extruded herniated disc or canal stenosis Dictated by: Vahe Campos MD 01/05/2020 12:14 Electronically signed by Vahe Campos MD in [place] 01/05/2020 12:14
== END ==
PROVIDERS: PCP Emergency Medicine; Visit Provider Emergency Medicine
DX: M54.5 Low back pain (principal)
CPT/HCPCS: 72148; 76376

== ENCOUNTER → 2020-03-20 17:44 | Outpatient (CLI) | payer OTHER, SELFPAY ==
[2020-03-20 19:44] LABS: 25-OH Vitamin D, Total 40.5 ng/mL (30-100)
[2020-03-20 19:54] LABS: Alanine Aminotransferase 18 U/L (12-78); Albumin Level 4.7 g/dl (3.5-5.0); Albumin/Globulin Ratio 1.6 (1.1-1.8); Alkaline Phosphatase 68 U/L (38-126); Aspartate Amino Transferase 30 U/L (17-59); Bilirubin,Total 0.6 mg/dl (0.2-1.3); Blood Urea Nitrogen 9 mg/dl (9-20); Calcium 9.7 mg/dl (8.4-10.2); Carbon Dioxide 31 mmol/L (22.0-30.0); Chloride 93 mmol/L (98-107); Chol/HDL Ratio 4.2 (1-3.5); Cholesterol 173 mg/dl (140-200); Estimated Glomerular Filt Rate 90 ml/min (>60); GFR (African American) 109 ML/MIN (>60); Globulin 2.9 g/dL (1.3-3.2); Glucose 61 mg/dl (74-100); HDL Cholesterol 41 mg/dl (40-60); Sodium 136 mmol/L (136-145); Total Protein,Serum 7.6 g/dl (6.3-8.2); Triglycerides 324 mg/dl (30-150); VLDL Cholesterol 65 mg/dL (0-40)
[2020-03-20 20:07] LABS: Direct LDL Cholesterol 97.43 mg/dL (100-129)
[2020-03-20 20:10] LABS: T4 (Thyroxine) 3.8 ug/dl (5.53-11.0)
[2020-03-20 20:24] LABS: Thyroid Stimulating Hormone < 0.02 uIU/mL (0.465-4.68)
[2020-03-20 20:34] LABS: Basophils # 0.1 K/mm3 (0-0.2); Basophils % 0.9 % (0.1-2.0); Eosinophils # 0.2 K/mm3 (0.0-0.4); Eosinophils % 2.2 % (0.1-12.0); Hematocrit 54.1 % (42.0-52.0); Hemoglobin 17.7 g/dL (14.1-18.0); Lymphocytes # 3.3 K/mm3 (0.7-4.5); Lymphocytes % 34.8 % (10-50); Mean Corpuscular HGB Conc 32.8 g/dL (31.8-35.4); Mean Corpuscular Hemoglobin 31.4 pg (27.0-31.2); Mean Corpuscular Volume 95.8 fl (80-94); Mean Platelet Volume 8.5 fl (7.4-10.4); Monocytes # 0.8 K/mm3 (0.1-1.0); Monocytes % 7.9 % (1.7-9.3); Neutrophils # 5.2 K/mm3 (1.8-7.8); Neutrophils % 54.2 % (37.0-80.0); Platelet Count 248 K/mm3 (142-424); Red Blood Count 5.65 M/mm3 (4.60-6.20); Red Cell Distribution Width 15.5 % (11.5-17.5); White Blood Count 9.6 K/mm3 (4.8-10.8)
[2020-03-22 09:11] LABS: PSA, Free 0.09 ng/mL; Prostate Specific Ag 0.3 ng/mL (0.0-4.0)
== END ==
PROVIDERS: Visit Provider Nurse Practitioner Family
DX: E11.9 Type 2 diabetes mellitus without complications (principal); G62.9 Polyneuropathy, unspecified; R53.83 Other fatigue; Z12.5 Encounter for screening for malignant neoplasm of prostate; Z79.4 Long term (current) use of insulin
CPT/HCPCS: 80053; 80061; 82306; 84153; 84154; 84436; 84443; 85025

== ENCOUNTER 2020-05-07 12:57 | Emergency (ER) | payer OTHER, SELFPAY ==
[2020-05-07 13:12] VITALS: BP 138/84; PULSE 69; RESP 12; TEMP 36.3; O2SAT 96; BMI 35.2
--- NOTE | 2020-05-07 13:20 | HMH.EDUTC ---
[facility] [place] Disposition Clinical Impression: Abdominal pain Qualifiers: Abdominal location: unspecified location Qualified Code(s): R10.9 - Unspecified abdominal pain Disposition: Still a Patient Condition on Discharge: Good Referrals: Cm Chance MD [Primary Care Provider] - Time of Disposition: 13:34 Medical Decision Making - Tristen Inquiry Pt receiving controlled substance: No Tristen was queried for this patient: No Vital Signs: 05/07/20 13:12 05/07/20 13:33 Temperature 97.3 F L 97.3 F L Temperature Source Oral Oral Pulse Rate [Radial] 69 69 Respiratory Rate 12 15 Blood Pressure [Right Arm] 138/84 138/84 Blood Pressure Mean [Right Arm] 102 102 Blood Pressure Source [Right Arm] Automatic Cuff Automatic Cuff Blood Pressure Position [Right Arm] Sitting Sitting 02 Sat by Pulse Oximetry 96 96 Oxygen Delivery Method Room Air Room Air - Lab Data Lab Results 05/07/20 13:50: WBC 11.8 H, RBC 5.89, Hct 56.6 H, MCV 96.0 H, MCH 32.0 H, MCHC 33.3, RDW 15.2, Plt Count 245, MPV 8.2, Neut % (Auto) 56.8, Lymph % (Auto) 30.4, [place] % (Auto) 6.5, Eos % (Auto) 5.0, Baso % (Auto) 1.3, Neut # (Auto) 6.7, Lymph # (Auto) 3.6, [place] # (Auto) 0.8, Eos # (Auto) 0.6 H, Baso # (Auto) 0.2 Result diagrams: 05/07/20 13:50 Orders (Tests/Meds): ED MEDICATIONS Discontinued Medications Generic Name Dose Route Start Last Admin Trade Name Freq PRN Reason Stop Dose Admin Belladonna Alkaloids 60 ml 05/07/20 13:37 05/07/20 13:39 Gi Cocktail 60ml Udc PO 05/07/20 13:38 60 ml ONCE ONE Administration Famotidine 20 mg 05/07/20 13:36 05/07/20 13:39 Pepcid 20mg/2ml Vial IV 05/07/20 13:37 20 mg ONCE ONE Administration ORDERS Category Date Time Status XR KUB Stat Exams 05/07/20 13:35 Ordered Complete Blood Count Auto Diff Stat Lab 05/07/20 13:50 Results Comprehensive Metabolic Panel Stat Lab 05/07/20 13:50 Received Lipase Stat Lab 05/07/20 13:50 Received Medical Decision Narrative: Patient reports abdominal pain that is a 9/10 and reports that he has been having explosive diarrhea for about 3 weeks, swelling in his abdomen and belching up liquid/vomit that smells like stool. Reports worse heart burn he has had Seen PCP about 2 weeks ago but today pain and discomfort was worse and feels like his abdomen is swollen and tight. Discussed with patient and recommended transfer to the ED for further work up and evaluation due to abdominal pain and swelling of abdomen and patient agreed, called ED spoke with Adia Keene RN and patient was moved to room 7 without complications or incident [facility] [place] HPI - General Stated complaint: stomach pain Time Seen by Provider: 05/07/20 13:21 Mode of Arrival: Ambulatory Source of Information: Patient Limitations: No Limitations Description of Symptoms (Recalled from Triage Doc. by RN): stomach issues, belches smell like stool, bitter taste when he vomits x 3-4 weeks. HEENT Symptoms (Recalled from RN notes): No Resp Symptoms (Recalled from RN notes): No Skin Symptoms (Recalled from RN notes): No MS Symptoms (Recalled from RN notes): No Functional Status (Recalled from RN notes): wnl - History of Present Illness Provider Complaint: Patient states that he has been having eplosive diarrhea for about 3 weeks States that he has been belching up some substance that tastes and smells like stool and feels like he is farting from his mouth States that his stomach is swollen and having stomach pain and it feels like his abdomen is going to pop rates pain a 9 and the worse heart burn he has ever had seen PCP about 2 weeks ago and they was trying to get him some test scheduled but today it was worse today so he came in - Related Data Home Medications Medication Instructions Recorded Confirmed aspirin 81 mg tablet,delayed 81 mg PO DAILY 09/25/19 04/25/20 release pantoprazole 40 mg tablet,delayed 40 mg PO DAILY 09/25/19 04/25/20 release hydroxyzine HCl 25 mg tablet 25
[2020-05-07 13:33] VITALS: BP 138/84; PULSE 69; RESP 15; TEMP 36.3; O2SAT 96; BMI 35.0
--- NOTE | 2020-05-07 13:35 | XR_ITS ---
PROCEDURE: XR KUB CLINICAL INDICATION: abdominal distention COMPARISON: CT CT ABDOMEN PELVIS W CON from 05/07/2020 FINDINGS: There is a moderate amount of retained colonic feces throughout the colon. Gas-filled loops of small bowel are also noted. The rectum does not appear significantly distended with feces. No abnormal calcifications or acute bony anomalies. IMPRESSION: Constipation with moderate amount of retained colonic feces. Dictated by: Vahe Campos MD 05/07/2020 15:30 Vahe Campos MD in [place] 05/07/2020 15:30
--- NOTE | 2020-05-07 13:39 | HMH.EDGENADL ---
ED Disposition Clinical Impression: Abdominal pain Qualifiers: Abdominal location: generalized Qualified Code(s): R10.84 - Generalized abdominal pain Constipation Qualifiers: Constipation type: unspecified constipation type Qualified Code(s): K59.00 - Constipation, unspecified Disposition: Home, Self-Care Condition on Discharge: Good Instructions: DI for Acute Abdomen Additional Instructions: Take the miralax twice per day until you have soft stools. Take the docusate/senna once per day. Hold these if you have diarrhea. Take the zofran for nausea. Return with any concerns. Follow up with your PCP Prescriptions: Sennosides/Docusate Sodium [Docusate Sodium-Senna Tablet] 1 each PO DAILY 14 Days #14 tab Prescription Printed polyethylene glycoL 3350 [Miralax 17gm Packet] 17 gm PO DAILYP PRN 14 Days #14 packet PRN Reason: Constipation Prescription Printed Ondansetron [Zofran 4mg ODT] 4 mg PO TIDP PRN #9 tab PRN Reason: Nausea And Vomiting Prescription Printed Referrals: Cm Chance MD [Primary Care Provider] - - Critical Care Critical Care Time: No Attestation: On 05/07/20, the high probability of a clinically significant, sudden or life threatening deterioration of the following system(s) required my full and direct attention, intervention and personal management. The time I documented below is in addition to time spent performing reported procedures but includes the following listed in this critical care notation. Medical Decision Making - Tristen Inquiry Pt receiving controlled substance: No Vital Signs: 05/07/20 13:12 05/07/20 13:33 05/07/20 14:33 Temperature 97.3 F L 97.3 F L Temperature Source Oral Oral Pulse Rate Pulse Rate [Radial] 69 69 66 Respiratory Rate 12 15 Blood Pressure Blood Pressure [Right Arm] 138/84 138/84 114/70 Blood Pressure Mean [Right Arm] 102 102 84 Blood Pressure Source Blood Pressure Source [Right Arm] Automatic Cuff Automatic Cuff Automatic Cuff Blood Pressure Position Blood Pressure Position [Right Arm] Sitting Sitting Sitting 02 Sat by Pulse Oximetry 96 96 97 Oxygen Delivery Method Room Air Room Air Room Air 05/07/20 15:27 05/07/20 16:20 05/07/20 16:34 Temperature 97.3 F L Temperature Source Oral Pulse Rate 60 Pulse Rate [Radial] 62 62 Respiratory Rate 18 19 Blood Pressure 119/85 Blood Pressure [Right Arm] 123/95 H 120/70 Blood Pressure Mean [Right Arm] 104 86 Blood Pressure Source Automatic Cuff Blood Pressure Source [Right Arm] Automatic Cuff Automatic Cuff Blood Pressure Position Sitting Blood Pressure Position [Right Arm] Sitting Sitting 02 Sat by Pulse Oximetry 93 L 92 L Oxygen Delivery Method Room Air Room Air - Lab Data Lab Results 05/07/20 13:50: WBC 11.8 H, RBC 5.89, Hgb 18.8 H*, Hct 56.6 H, MCV 96.0 H, MCH 32.0 H, MCHC 33.3, RDW 15.2, Plt Count 245, MPV 8.2, Neut % (Auto) 56.8, Lymph % (Auto) 30.4, [place] % (Auto) 6.5, Eos % (Auto) 5.0, Baso % (Auto) 1.3, Neut # (Auto) 6.7, Lymph # (Auto) 3.6, [place] # (Auto) 0.8, Eos # (Auto) 0.6 H, Baso # (Auto) 0.2 05/07/20 13:50: Lipase 32 05/07/20 13:50: Sodium 135 L, Potassium 5.5 H, Chloride 90 L, Carbon Dioxide 37 H, Anion Gap 13.5, BUN 12, Creatinine 0.90, Estimated Creat Clear 154, Estimated GFR 89, Est GFR ( Amer) 108, Glucose 105 H, Calcium 10.6 H, Total Bilirubin 0.6, AST 40, ALT 16, Alkaline Phosphatase 46, Total Protein 8.5 H, Albumin 5.0, Globulin 3.5 H, Albumin/Globulin Ratio 1.4 Result diagrams: 05/07/20 13:50 05/07/20 13:50 Orders (Tests/Meds): ED MEDICATIONS Discontinued Medications Generic Name Dose Route Start Last Admin Trade Name Freq PRN Reason Stop Dose Admin Belladonna Alkaloids 60 ml 05/07/20 13:37 05/07/20 13:39 Gi Cocktail 60ml Udc PO 05/07/20 13:38 60 ml ONCE ONE Administration Famotidine 20 mg 05/07/20 13:36 05/07/20 13:39 Pepcid 20mg/2ml Vial IV 05/07/20 13:37 20 mg ONCE ONE Administration
--- NOTE | 2020-05-07 13:41 | ECG_ITS ---
APPROVED REPORT Exam: Resting ECG HR:63 bpm ECG Measurements Heart Rate 63 AXES AL 170 P 67 QRSd 86 QRS 158 QT 430 T 68 QTc 440 <Conclusion> Normal sinus rhythm Left posterior fascicular block Possible Inferior infarct, Old Incomplete RBBB Abnormal ECG Electronically signed by : Kalia Jaime, 05/08/2020 08:50:04
[2020-05-07 14:00] LABS: Basophils # 0.2 K/mm3 (0-0.2); Basophils % 1.3 % (0.1-2.0); Eosinophils # 0.6 K/mm3 (0.0-0.4); Hematocrit 56.6 % (42.0-52.0); Lymphocytes # 3.6 K/mm3 (0.7-4.5); Lymphocytes % 30.4 % (10-50); Mean Corpuscular HGB Conc 33.3 g/dL (31.8-35.4); Mean Platelet Volume 8.2 fl (7.4-10.4); Monocytes # 0.8 K/mm3 (0.1-1.0); Monocytes % 6.5 % (1.7-9.3); Neutrophils # 6.7 K/mm3 (1.8-7.8); Neutrophils % 56.8 % (37.0-80.0); Platelet Count 245 K/mm3 (142-424); Red Blood Count 5.89 M/mm3 (4.60-6.20); Red Cell Distribution Width 15.2 % (11.5-17.5); White Blood Count 11.8 K/mm3 (4.8-10.8)
[2020-05-07 14:08] LABS: Chloride 90 mmol/L (98-107); Hemoglobin 18.8 g/dL (14.1-18.0); Potassium 5.5 mmoL/L (3.5-5.1); Sodium 135 mmol/L (136-145)
[2020-05-07 14:10] LABS: Alanine Aminotransferase 16 U/L (12-78); Aspartate Amino Transferase 40 U/L (17-59); Blood Urea Nitrogen 12 mg/dl (9-20); Creatinine Clearance Estimated 154 mL/min (50-200); Estimated Glomerular Filt Rate 89 ml/min (>60); GFR (African American) 108 ML/MIN (>60)
[2020-05-07 14:11] LABS: Albumin/Globulin Ratio 1.4 (1.1-1.8); Alkaline Phosphatase 46 U/L (38-126); Anion Gap 13.5 mEq/L (5-15); Bilirubin,Total 0.6 mg/dl (0.2-1.3); Calcium 10.6 mg/dl (8.4-10.2); Carbon Dioxide 37 mmol/L (22.0-30.0); Globulin 3.5 g/dL (1.3-3.2); Glucose 105 mg/dl (74-100); Total Protein,Serum 8.5 g/dl (6.3-8.2)
--- NOTE | 2020-05-07 14:18 | CT_ITS ---
PROCEDURE: CT ABDOMEN PELVIS W CON CLINICAL INDICATION: abdominal pain and distention COMPARISON: No exams were available for comparison TECHNIQUE: IV Contrast: 75ML OPTIRAY 350 Oral Contrast None Axial images obtained with sagittal and coronal reformats. All CT scans at the facility use one or more dose reduction, viz: automated exposure control, ma/kV adjustment per patient size (including targeted exams where dose is matched to indication, i.e. head), or iterative reconstruction technique. FINDINGS: LOWER THORAX: Minimal left basilar atelectasis. There is mild thickening of the pericardium anteriorly ABDOMEN & PELVIS: There is mild fatty liver infiltration. The spleen, adrenal glands, pancreas, and gallbladder have an unremarkable appearance. No renal or ureteral calculi. No hydronephrosis. There is a moderate amount of retained colonic feces throughout the colon. There is redundant sigmoid colon. No evidence of bowel obstruction. No free air.. No evidence of appendicitis. There are some mildly prominent small bowel loops with air-fluid levels. No transition point identified. No pelvic mass or abnormal fluid collection. There are degenerative changes in the lower thoracic spine. IMPRESSION: 1. Constipation. Redundant sigmoid colon. 2. Mildly prominent fluid-filled small bowel loops with a few scattered air-fluid levels without obvious transition point which could be due to ileus or enteritis. 3. Other nonacute findings as described above Dictated by: Vahe Campos MD 05/07/2020 15:55 Vahe Campos MD in [place] 05/07/2020 15:55
[2020-05-07 14:21] LABS: Lipase 32 U/L (23-300)
[2020-05-07 14:33] VITALS: BP 114/70; PULSE 66; O2SAT 97
--- NOTE | 2020-05-07 15:10 | PC.NURSE ---
pt to rad
[2020-05-07 15:27] VITALS: BP 123/95; PULSE 62; O2SAT 93
[2020-05-07 16:20] VITALS: BP 120/70; PULSE 62; RESP 18; O2SAT 92
[2020-05-07 16:34] VITALS: BP 119/85; PULSE 60; RESP 19; TEMP 36.3; O2SAT 95
== END 2020-05-07 16:35 | disposition home or self-care (01) ==
LOC: UTC 13:01 → ER 13:30
PROVIDERS: Emergency Provider Emergency Medicine; PCP Emergency Medicine
DX: R10.84 Generalized abdominal pain (principal); K59.00 Constipation, unspecified; E11.9 Type 2 diabetes mellitus without complications; I10 Essential (primary) hypertension; E03.9 Hypothyroidism, unspecified; E78.5 Hyperlipidemia, unspecified; F17.210 Nicotine dependence, cigarettes, uncomplicated
CPT/HCPCS: 74018; 74177; 80053; 83690; 85025; 93005; 96374; 99283; Q9967

== ENCOUNTER → 2020-05-21 13:44 | Outpatient (CLI) | payer OTHER, SELFPAY ==
[2020-05-23 15:24] LABS: H. pylori Breath Test Positive (Negative)
== END ==
PROVIDERS: Physician Assistant; Visit Provider Nurse Practitioner Family
DX: R14.2 Eructation (principal)
CPT/HCPCS: 83013

== ENCOUNTER → 2020-11-13 13:27 | Outpatient (CLI) | payer OTHER, SELFPAY ==
--- NOTE | 2020-11-13 13:28 | CA_ITS ---
APPROVED REPORT Right Lower Extremity Venous Study for DVT. Divisional Human Resources Director: Nelida White RT(R) Indications Lower Extremity Pain: Right Current Smoker r/o dvt. knot noted on right lateral calf at the distal portion. Patient states he thought it was a spider bite. Denies trauma Risk Factors Obesity Current Smoker HTN, hyperlipidemia, diabetes Vein Imaging CFV (R): compressive, spontaneous, phasic, augmentation FEM (R): compressive, spontaneous, phasic, augmentation POP (R): compressive, spontaneous, phasic, augmentation PTV (R): Compressible GSV (R): compressive, spontaneous, phasic, augmentation SSV (R): Compressible Peroneals (R):Compressible GAS (R): Compressible Findings No evidence of DVT or superficial thrombophlebitis in the veins scanned of the right lower extremity. Conclusion No evidence of DVT or superficial thrombophlebitis in the veins scanned of the right lower extremity. Critical Notification Critical Value: No Physician Notified Date: 11/13/2020 Time: 14:06 Physician Name: Pamela @Dr. Chance office Electronically signed by : Irma Phelan, 11/13/2020 15:53:43
== END ==
PROVIDERS: PCP Emergency Medicine; Visit Provider Emergency Medicine
DX: M79.661 Pain in right lower leg (principal); M79.89 Other specified soft tissue disorders
CPT/HCPCS: 93971

== ENCOUNTER → 2021-03-17 18:12 | Outpatient (CLI) | payer OTHER, SELFPAY ==
[2021-03-17 18:53] LABS: Basophils # 0.1 K/mm3 (0-0.2); Basophils % 1.2 % (0.1-2.0); Eosinophils # 0.4 K/mm3 (0.0-0.4); Eosinophils % 4.2 % (0.1-12.0); Hematocrit 53.8 % (42.0-52.0); Hemoglobin 17.2 g/dL (14.1-18.0); Lymphocytes # 2.9 K/mm3 (0.7-4.5); Lymphocytes % 34.7 % (10-50); Mean Corpuscular Hemoglobin 29.9 pg (27.0-31.2); Mean Corpuscular Volume 93.3 fl (80-94); Mean Platelet Volume 9.9 fl (7.4-10.4); Monocytes # 0.6 K/mm3 (0.1-1.0); Monocytes % 7.2 % (1.7-9.3); Neutrophils # 4.5 K/mm3 (1.8-7.8); Neutrophils % 52.7 % (37.0-80.0); Platelet Count 222 K/mm3 (142-424); Red Blood Count 5.77 M/mm3 (4.60-6.20); Red Cell Distribution Width 15.1 % (11.5-17.5); White Blood Count 8.4 K/mm3 (4.8-10.8)
[2021-03-17 19:28] LABS: Creatinine,Urine Random 91 mg/dL (Not Estab.); Microalbumin/Creatinine Ratio 329.1
[2021-03-17 19:53] LABS: Alanine Aminotransferase 20 U/L (12-78); Albumin Level 4.4 g/dl (3.5-5.0); Albumin/Globulin Ratio 1.8 (1.1-1.8); Alkaline Phosphatase 62 U/L (38-126); Anion Gap 14.6 mEq/L (5-15); Aspartate Amino Transferase 37 U/L (17-59); Bilirubin,Total 0.5 mg/dl (0.2-1.3); Blood Urea Nitrogen 14 mg/dl (9-20); Carbon Dioxide 28 mmol/L (22.0-30.0); Chloride 98 mmol/L (98-107); Chol/HDL Ratio 5.6 (1-3.5); Cholesterol 167 mg/dl (140-200); Estimated Glomerular Filt Rate 102 ml/min (>60); GFR (African American) 124 ML/MIN (>60); Globulin 2.5 g/dL (1.3-3.2); Glucose 267 mg/dl (74-100); HDL Cholesterol 30 mg/dl (40-60); Potassium 5.6 mmoL/L (3.5-5.1); Sodium 135 mmol/L (136-145); Total Protein,Serum 6.9 g/dl (6.3-8.2); Triglycerides 245 mg/dl (30-150); VLDL Cholesterol 49 mg/dL (0-40)
[2021-03-17 20:04] LABS: Direct LDL Cholesterol 100.49 mg/dL (100-129)
[2021-03-17 20:11] LABS: T4 (Thyroxine) 5.1 ug/dl (5.53-11.0)
[2021-03-17 20:24] LABS: Prostate Specific Ag Screen 0.2 ng/ml (0.0-4.0); Thyroid Stimulating Hormone < 0.02 uIU/mL (0.465-4.68)
[2021-03-17 20:31] LABS: Hemoglobin A1C 6.9 % (4.0-6.0)
[2021-03-17 20:52] LABS: 25-OH Vitamin D, Total 45.5 ng/mL (30-100)
== END ==
PROVIDERS: Visit Provider Nurse Practitioner Family
DX: E03.9 Hypothyroidism, unspecified (principal); E11.9 Type 2 diabetes mellitus without complications; E55.9 Vitamin D deficiency, unspecified; Z79.4 Long term (current) use of insulin; Z72.0 Tobacco use; Z12.5 Encounter for screening for malignant neoplasm of prostate
CPT/HCPCS: 80053; 80061; 82043; 82306; 82570; 83036; 84436; 84443; 85025; G0103

== ENCOUNTER → 2021-04-10 12:22 | Outpatient (CLI) | payer OTHER, SELFPAY ==
[2021-04-10 13:49] LABS: Chloride 97 mmol/L (98-107); Potassium 5.2 mmoL/L (3.5-5.1); Sodium 135 mmol/L (136-145)
[2021-04-10 13:52] LABS: Anion Gap 14.2 mEq/L (5-15); Blood Urea Nitrogen 20 mg/dl (9-20); Carbon Dioxide 29 mmol/L (22.0-30.0); Estimated Glomerular Filt Rate 102 ml/min (>60); GFR (African American) 123 ML/MIN (>60)
[2021-04-10 13:53] LABS: Calcium 8.8 mg/dl (8.4-10.2); Glucose 292 mg/dl (74-100)
== END ==
PROVIDERS: Visit Provider Nurse Practitioner Family
DX: E87.5 Hyperkalemia (principal)
CPT/HCPCS: 36415; 80048

== ENCOUNTER 2021-04-28 12:47 | Emergency (ER) | payer OTHER, SELFPAY ==
[2021-04-28 14:53] VITALS: BP 105/82; PULSE 110; RESP 22; TEMP 36.6; O2SAT 94; BMI 35.2
--- NOTE | 2021-04-28 15:21 | HMH.EDUTC ---
[facility] [place] Dis[place] Clinical Impression: Suspected 2019 novel coronavirus infection Sinusitis Qualifiers: Sinusitis location: unspecified location Chronicity: unspecified Qualified Code(s): J32.9 - Chronic sinusitis, unspecified Disposition: Home, Self-Care Condition on Discharge: Good Instructions: Sinusitis, DI for Sinusitis, DI for COVID-19 (Suspected or Confirmed ), Preventing the Spread of Coronavirus Discharge Instructions Additional Instructions: *Monitor Temp, Over the counter Motrin or Tylenol as directed/as needed Tylenol every 4 hours and Motrin every 6 hours (as long as your family doctor has told you that you can take it) for fever or pain. and straight to ER if unable to lower temp less than 101.0 after medication given *Warm salt water gargles may help to soothe the throat *Throat Lozenges *Warm fluids like tea with honey may help to soothe the throat *Sleep elevated *Humidifier/Vaporizer Take medication as prescribed Follow up IMMEDIATELY for new or worsening symptoms or no Noticeable improvement over the next 48-72 hours. 911 for difficulty breathing or swallowing You were tested for today for COVID19 your test result should be back in the next 24-48 hours, you was given handout on how to check for your results on [facility] Portal if you have issues or no internet access you may call the [facility] [place] You was given a handout with instructions for Self Quarantine and Self isolation for while you wait on test results and what to do if they are positive If you are positive the Health Dept will be contacting you also Make sure to take your Vitamins Vit. C Vit D and Zinc if you can take them Prescriptions: Albuterol Sulfate [Proventil-HFA 90mcg/puff Inh] 1 - 2 puffs IH Q4HP PRN #1 each PRN Reason: Shortness Of Breath Transmission Status: Received by [facility] Doxycycline Monohydrate [Doxycycline [place] 100mg Tab] 100 mg PO Q12 10 Days #20 tab Transmission Status: Received by [facility] Fluticasone Propionate [Flonase 50mcg nasal spray 16gm] 1 spr NS DAILY #1 each Transmission Status: Received by [facility] Referrals: Robson,Cm S, MD [Primary Care Provider] - As needed Time of Disposition: 15:49 Medical Decision Making - Tristen Inquiry Pt receiving controlled substance: No Tristen was queried for this patient: No Vital Signs: 04/28/21 14:53 04/28/21 15:59 Temperature 97.8 F 97.8 F Temperature Source Tympanic Pulse Rate 110 H Pulse Rate [Left Radial] 110 H Respiratory Rate 22 22 Blood Pressure 105/82 L Blood Pressure [Left Arm] 105/82 L Blood Pressure Mean [Left Arm] 89 02 Sat by Pulse Oximetry 94 L Oxygen Delivery Method Room Air Orders (Tests/Meds): ORDERS Category Date Time Status Covid-19 Nasal PCR ([facility]) Routine Lab 04/28/21 15:02 Received Medical Decision Narrative: Discussed with patient about CXR and transfer to the ED for further evaluation and patient declined CXR or transfer to the ED States that he feels ok and just wants to get antibiotics and an inhaler and go home Discussed with patient concern and he still declined State that he is tired and just wants to go home Prior to patient being dc'd again recommended transfer to the ED for further work up and patient declined [facility] [place] HPI - General Stated complaint: weakness,headache,cough Time Seen by Provider: 04/28/21 15:27 Mode of Arrival: Ambulatory Source of Information: Patient Limitations: No Limitations Description of Symptoms (Recalled from Triage Doc. by RN): Pt states I just don't feel good. I feel awful. Like I have the flu. I just feel so sick HEENT Symptoms (Recalled from RN notes): No Resp Symptoms (Recalled from RN notes): No Skin Symptoms (Recalled from RN notes): No MS Symptoms (Recalled from RN notes): No Functional Status (Recalled from RN notes): n/a - History of Present Illness Provider Complaint: Patient states I think have the flu or
[2021-04-28 15:59] VITALS: BP 105/82; PULSE 110; RESP 22; TEMP 36.6; O2SAT 94
== END 2021-04-28 16:03 | disposition home or self-care (01) ==
PROVIDERS: Emergency Provider Nurse Practitioner; PCP Emergency Medicine
DX: U07.1 COVID-19 (principal); J32.9 Chronic sinusitis, unspecified; E11.9 Type 2 diabetes mellitus without complications; E78.5 Hyperlipidemia, unspecified; I10 Essential (primary) hypertension; F17.210 Nicotine dependence, cigarettes, uncomplicated; Z79.899 Other long term (current) drug therapy
CPT/HCPCS: 99202; C9803; G0463; U0003; U0005